=== PATIENT | male | born 1990 | race African-American/Black ===

== ENCOUNTER 2016-12-04 10:11 | Emergency (ER) | payer SELFPAY ==
[~2016-12-04] VITALS: Ht 167.6 cm; Wt 85.0 kg
[~2016-12-04 10:11] MED LIST: PERC5TAB12 PO
[2016-12-04 10:13] VITALS: BP 146/77; PULSE 87; RESP 16; TEMP 98.2; O2SAT 98
[2016-12-04] MEDS ORDERED: PROCHLORPERAZINE MALEATE 10 MG TAB PO ONE (11:45)
[2016-12-04] MEDS ORDERED: diphenhydrAMINE HCL 25 MG CAP PO ONE (11:45)
--- NOTE | 2016-12-04 11:58 | PD ---
HPI Chief Complaint: Headache Time Seen by Provider: 11:11 Travel History International Travel<30 days: No Contact w/Intl Traveler<30days: No Traveled to known affect area: No History of Present Illness HPI Patient 26-year-old male with a history of migraines presents emergency Department with body aches as well as migraine for the past 2 days. Patient states she's been taking Xanax he buys off the street for his headache. States he just tries to sleep through his headaches. Denies any suicidal homicidal ideation. States he had some chills yesterday without fever. Denies any blurred vision focal as weakness abdominal pain nausea vomiting diarrhea chest pain shortness of breath. Denies any cough or URI symptoms. Patient describes his headache as all over aching in nature. [facility] Past Medical History Immunizations Current: Yes Migraines: Yes Tetanus Vaccination: < 5 Years Social History Alcohol Use: Yes (socially) Tobacco Use: No Substance Use: Yes (marijuana) Allergies-Medications (Allergen,Severity, Reaction): Coded Allergies: No Known Allergies (Unverified , 02/27/16) Reported Meds & Prescriptions Reported Meds & Active Scripts Active No Active Prescriptions or Reported Medications Review of Systems Except as stated in HPI: all other systems reviewed are Neg Physical Exam Narrative GENERAL: Well-developed well-nourished no apparent distress. SKIN: Warm and dry. HEAD: Atraumatic. Normocephalic. EYES: Pupils equal and round. No scleral icterus. No injection or drainage. ENT: No nasal bleeding or discharge. Mucous membranes pink and moist. TMs clear bilaterally, oropharynx clear and moist. NECK: Trachea midline. No JVD. Kernig's and Brudzinski signs negative, no nuchal rigidity. Full nontender range of motion of his neck. CARDIOVASCULAR: Regular rate and rhythm. No murmur appreciated. RESPIRATORY: No accessory muscle use. Clear to auscultation. Breath sounds equal bilaterally. GASTROINTESTINAL: Abdomen soft, non-tender, nondistended. Hepatic and splenic margins not palpable. MUSCULOSKELETAL: No obvious deformities. No clubbing. No cyanosis. No edema. NEUROLOGICAL: Awake and alert. Cranial nerves II through XII are grossly intact nonfocal, 5 out of 5 strength in all 4 extremity's. He relates with narrow based and balance gait. PSYCHIATRIC: Appropriate mood and affect; insight and judgment normal. Data Data Last Documented VS Vital Signs Date Time Temp Pulse Resp B/P Pulse Ox O2 Delivery O2 Flow Rate FiO2 12/04/16 10:13 98.2 87 16 146/77 98 Orders Urinalysis - C+S If Indicated (12/04/16 11:02) Diphenhydramine (Benadryl) (12/04/16 11:45) Prochlorperazine Maleate (Compazine) (12/04/16 11:45) Influenzae A/B Antigen (12/04/16 11:42) Urine Culture (12/04/16 11:55) Labs Laboratory Tests Test 12/04/16 11:55 Urine Color DARK-YELLOW Urine Turbidity HAZY Urine pH 6.0 Urine Specific [place] 1.040 Urine Protein 100 mg/dL Urine Glucose (UA) NEG mg/dL Urine Ketones 10 mg/dL Urine Occult Blood SMALL Urine Nitrite NEG Urine Bilirubin NEG Urine Urobilinogen 2.0 MG/DL Urine Leukocyte Esterase SMALL Urine RBC 15 /hpf Urine WBC 14 /hpf Urine Transitional Epithelial <1 /hpf Cells Urine Calcium Oxalate Crystals FEW /hpf Urine Bacteria FEW /hpf Urine Mucus MANY /lpf Microscopic Urinalysis Comment CULTURE INDICATED MDM Medical Decision Making Medical Screen Exam Complete: Yes Emergency Medical Condition: Yes Differential Diagnosis Headache, UTI, STD, Narrative Course Physical 26-year-old male presents emergency department for complaints of headache and dysuria. Patient states that he has Been Taking St., Xanax to treat his headache. On arrival he appears well. He has no red flag signs symptoms for headache and has had headaches before. Will be given Benadryl and Compazine by mouth. Patient UA was sent. On my reassessment patient is no longer in the room. His UA does show evidence for urinary tract infection versus STD. Plan was to do a examination at this point however the patient has not returned to his room and is eloped. Diagnosis Primary Impression: Headache Qualified Code: R51 - Nonintractable headache, unspecified chronicity pattern , unspecified headache type Scripts No Active Prescriptions or Reported Meds Disposition: 07 AGAINST MEDICAL ADVICE Condition: Constantine William MD Dec 04, 2016 11:58
[2016-12-04 12:25] LABS: BLOOD, URINE SMALL (NEG); CALCIUM OXALATE CRYSTALS,URINE FEW /hpf; COMMENT (UR) CULTURE INDICATED; CULTURE IF INDICATED CULTURE INDICATED; GLUCOSE,URINE NEG (NEG); KETONE, URINE 10 mg/dL (NEG); MUCUS URINE MANY /lpf (OCC); NITRITE,URINE NEG (NEG); TRANSITIONAL EPI CELLS, URINE <1 /hpf; URINE COLOR DARK-YELLOW (YELLW/STRAW)
[2016-12-04 12:27] LABS: BACTERIA, URINE FEW /hpf
== END 2016-12-04 13:23 | disposition left against medical advice (07) ==
LOC: NEPB 10:11
DX: R51 Headache (principal); R30.0 Dysuria; B95.7 Other staphylococcus as the cause of diseases classified elsewhere
CPT/HCPCS: 81001; 87077; 87086; 87186; 87804; 99284; Q0164

== ENCOUNTER 2017-12-18 10:52 | Emergency (ER) | payer SELFPAY ==
[~2017-12-18] VITALS: Ht 175.3 cm; Wt 80.0 kg
[2017-12-18 10:59] VITALS: BP 132/96; PULSE 66; RESP 17; TEMP 97.5; O2SAT 97
[2017-12-18 11:35] LABS: BACTERIA, URINE FEW /hpf; BILIRUBIN, URINE NEG (NEG); BLOOD, URINE TRACE (NEG); GLUCOSE,URINE NEG (NEG); KETONE, URINE NEG (NEG); NITRITE,URINE NEG (NEG); URINE COLOR YELLOW (YELLW/STRAW); URINE LEUKOCYTE ESTERASE LARGE (NEG)
[2017-12-18] MEDS ORDERED: CIPR-9 PO (11:54)
--- NOTE | 2017-12-18 11:55 | PD ---
HPI Chief Complaint: Complaint Time Seen by Provider: 11:53 Travel History International Travel<30 days: No Contact w/Intl Traveler<30days: No Traveled to known affect area: No History of Present Illness HPI 27-year-old male arrives describing dysuria and frequency. He reports discharge. He reports unprotected intercourse with the casual acquaintance. No fever chills. No rash. Duration about 1 day. No modifying factor. Severity mild. PFSH Past Medical History Immunizations Current: Yes Migraines: Yes Social History Alcohol Use: Yes (socially) Tobacco Use: No Substance Use: Yes (marijuana) Allergies-Medications (Allergen,Severity, Reaction): Coded Allergies: No Known Allergies (Unverified Adverse Reaction, Unknown, 12/18/17) Reported Meds & Prescriptions Reported Meds & Active Scripts Active Cipro (Ciprofloxacin HCl) 500 Mg Tab 500 Mg PO BID 7 Days Review of Systems Except as stated in HPI: all other systems reviewed are Neg General / Constitutional: No: Fever Genitourinary: Positive: Discharge Physical Exam Narrative GENERAL: 27 yo M, WNWD, NAD Vital Signs Date Time Temp Pulse Resp B/P (MAP) Pulse Ox O2 Delivery O2 Flow Rate FiO2 12/18/17 10:59 97.5 66 17 132/96 (108) 97 : Sternal genitalia grossly unremarkable. There is trace white discharge at urethral meatus. SKIN: Warm and dry. HEAD: Atraumatic. Normocephalic. EYES: Pupils equal and round. No scleral icterus. No injection or drainage. ENT: No nasal bleeding or discharge. Mucous membranes pink and moist. NECK: Trachea midline. No JVD. CARDIOVASCULAR: Regular rate and rhythm. RESPIRATORY: No accessory muscle use. Clear to auscultation. Breath sounds equal bilaterally. GASTROINTESTINAL: Abdomen soft, non-tender, nondistended. Hepatic and splenic margins not palpable. MUSCULOSKELETAL: Extremities without clubbing, cyanosis, or edema. No obvious deformities. NEUROLOGICAL: Awake and alert. No obvious cranial nerve deficits. Motor grossly within normal limits. Five out of 5 muscle strength in the arms and legs. Normal speech. PSYCHIATRIC: Appropriate mood and affect; insight and judgment normal. Data Data Last Documented VS Vital Signs Date Time Temp Pulse Resp B/P (MAP) Pulse Ox O2 Delivery O2 Flow Rate FiO2 12/18/17 10:59 97.5 66 17 132/96 (108) 97 Orders Orders Urinalysis - C+S If Indicated (12/18/17 11:01) Urine Culture (12/18/17 11:10) Azithromycin Powd Pack (Zithromax Powd P (12/18/17 12:00) Ceftriaxone Inj (Rocephin Inj) (12/18/17 12:00) Lidocaine 1% Inj (50 Ml) (Xylocaine 1% I (12/18/17 12:00) Ed Discharge Order (12/18/17 11:56) Lidocai-Epi 1%-1:100,000 Inj (Xylocaine- (12/18/17 12:10) Labs Laboratory Tests Test 12/18/17 11:10 Urine Color YELLOW Urine Turbidity HAZY Urine pH 8.0 Urine Specific [place] 1.016 Urine Protein TRACE mg/dL Urine Glucose (UA) NEG mg/dL Urine Ketones NEG mg/dL Urine Occult Blood TRACE Urine Nitrite NEG Urine Bilirubin NEG Urine Urobilinogen LESS THAN 2.0 MG/DL Urine Leukocyte Esterase LARGE Urine RBC 8 /hpf Urine WBC /hpf Urine Bacteria FEW /hpf Microscopic Urinalysis Comment CULTURE INDICATED MDM Medical Decision Making Medical Screen Exam Complete: Yes Emergency Medical Condition: Yes Medical Record Reviewed: Yes Differential Diagnosis UTI, gonorrhea, chlamydia, trichomoniasis Narrative Course UA shows UTI Empiric coverage empiric coverage provided Diagnosis Primary Impression: UTI (urinary tract infection) Qualified Codes: N30.00 - Acute cystitis without hematuria Additional Impression: STD (male) Referrals: [facility] Dept. 2 days Med/Other Pt SpecificInfo: Prescription(s) given Scripts Ciprofloxacin (Cipro) 500 Mg Tab 500 MG PO BID for Infection for 7 Days, #14 TAB 0 Refills Prov: Jose Marie MD 12/18/17 Disposition: 01 DISCHARGE HOME Condition: Stable Jose Marie MD Dec 18, 2017 11:55
[2017-12-18] MEDS ORDERED: LIDOCAINE HCL 1% 50 ML VIAL XX ONE (12:00)
[2017-12-18] MEDS ORDERED: AZITHROMYCIN PWD FOR SUSP 1 GM PACKET PO ONE (12:00)
[2017-12-18] MEDS ORDERED: cefTRIAXone 250 MG VIAL IM ONE (12:00)
[2017-12-18] MEDS ORDERED: LIDOCAINE 1%/EPINEPHrine 1:100,000 SOLN 50 ML VIAL ONE (12:10)
[2017-12-18] MEDS ORDERED: metroNIDAZOLE 500 MG TAB PO ONE (12:15)
[2017-12-18] MEDS ORDERED: LIDOCAINE HCL 1% PF 2 ML VIAL OTHER ONE (12:30)
[2017-12-18 12:45] VITALS: BP 120/81; TEMP 97.9
== END 2017-12-18 12:47 | disposition home or self-care (01) ==
LOC: NED 10:52 → NEPD 12:47
DX: N30.00 Acute cystitis without hematuria (principal); A64 Unspecified sexually transmitted disease; A54.9 Gonococcal infection, unspecified
CPT/HCPCS: 81001; 87077; 87086; 87185; 96372; 99283; J0696

== ENCOUNTER 2018-03-03 13:56 | Emergency (ER) | payer OTHER ==
[~2018-03-03 13:56] MED LIST changes: +CIPR-9 PO; -PERC5TAB12 PO
[2018-03-03 14:15] VITALS: BP 132/79; PULSE 63; RESP 16; TEMP 98.6; O2SAT 99
[2018-03-03] MEDS ORDERED: KETOROLAC TROMETHAMINE 60 MG/2 ML (IM) VIAL IM ONE (14:30)
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
[2018-03-03] MEDS ORDERED: IBUP1TAB7 PO (14:32)
[2018-03-03] MEDS ORDERED: CYCL10TA PO (14:32)
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
== END 2018-03-03 16:42 | disposition home or self-care (01) ==
LOC: NEPA 13:56
DX: S00.81XA Abrasion of other part of head, initial encounter (principal); J45.909 Unspecified asthma, uncomplicated; V49.50XA Passenger injured in collision with unspecified motor vehicles in traffic accident, initial encounter
CPT/HCPCS: 72100; 96372; 99283; J1885